=== PATIENT | female | born 1965 | race Caucasian/White ===

== ENCOUNTER 2017-02-07 10:02 | Emergency (ER) | payer OTHER ==
[2017-02-07] MEDS ORDERED: TORAdol 30 mg Injection IV ONE (10:21)
[2017-02-07] MEDS ORDERED: Sodium Chloride 0.9% 1000 ML 1,000 ML IV STA (10:21)
[2017-02-07] MEDS ORDERED: Zofran 4 MG/2 ML VIAL IV ONE (10:21)
[2017-02-07] MEDS ORDERED: Zofran 4 MG/2 ML VIAL ONE (10:25)
[2017-02-07] MEDS ORDERED: TORAdol 30 mg Injection ONE (10:25)
[2017-02-07] MEDS ORDERED: Sodium Chloride 0.9% 1000 ML 1,000 ML ONE (10:25)
--- NOTE | 2017-02-07 10:25 | ERPHSYRPT ---
- History of Present Illness Time Seen by Provider: 02/07/17 10:23 Historian: patient Exam Limitations: no limitations Patient Subjective Stated Complaint: pain to left lower abd and nausea Triage Nursing Assessment: to er c/o left lower quad pain, gradual onset of nausea, diaphoresis and weakness pt denies any vomitting BS + X4 a @ox 3. last bm today Physician History: mild to mod sudden LLQ ache pain today, nonrad, no injury, no fever, + diaphoresis, hx renal stones, +N, no emesis Hx Influenza Vaccination/Date Given: Yes - Review of Systems Constitutional: No Fever Eyes: No Symptoms Ears, Nose, & Throat: No Symptoms Respiratory: No Symptoms Cardiac: No Symptoms Abdominal/Gastrointestinal: Abdominal Pain, Nausea Musculoskeletal: No Back Pain Skin: No Symptoms Neurological: No Symptoms Psychological: No Symptoms - Past Medical History Endocrine Medical History: Hypothyroidism Other Medical History: hx kidney stone - Past Surgical History Past Surgical History: Yes Other Surgical History: thyriodectomy - Social History Smoking Status: Never smoker Drug Use: none - Female History Hx Last Menstrual Period: 2014 - Nursing Vital Signs Nursing Vital Signs: Initial Vital Signs Temperature 96.6 F 02/07/17 10:10 Pulse Rate 70 02/07/17 10:10 Respiratory Rate 16 02/07/17 10:10 Blood Pressure 165/94 02/07/17 10:10 Pain Scale Pain Intensity 3 - Physical Exam General Appearance: no apparent distress Eye Exam: eyes nml inspection Ears, Nose, Throat Exam: moist mucous membranes Neck Exam: normal inspection Respiratory Exam: normal breath sounds Cardiovascular Exam: regular rate/rhythm Gastrointestinal/Abdomen Exam: tenderness, No distention, No rebound Extremity Exam: normal inspection Neurologic Exam: alert, oriented x 3, cooperative Skin Exam: normal color, warm, dry Oxygen Delivery: Room Air - Course Nursing assessment & vital signs reviewed: Yes - CT Exams Abdomen/Pelvis CT Interpretation: Discussed w/radiologist, Other (left renal stone and partial obstruction) Ordered Tests: Active Orders 24 hr Category Date Time Status IV Insertion STAT Care 02/07/17 10:21 Active cath [Cath for Specimen-Straight] STAT Care 02/07/17 10:33 Active ABDOMEN AND PELVIS W/0 CONTRAS [CT] Stat Exams 02/07/17 12:38 Completed CBC W DIFF Stat Lab 02/07/17 10:36 Completed CMP Stat Lab 02/07/17 10:36 Completed CULTURE,URINE Stat Lab 02/07/17 10:36 Received HCG QUALITATIVE,SERUM Stat Lab 02/07/17 10:36 Completed LIPASE Stat Lab 02/07/17 10:36 Completed UA W/ MICROSCOPIC Stat Lab 02/07/17 10:36 Completed Medication Summary Discontinued Medications Generic Name Dose Route Start Last Admin Trade Name Nicola PRN Reason Stop Dose Admin Hydromorphone HCl 1 mg 02/07/17 10:39 02/07/17 10:43 Hydromorphone 1 Mg/Ml Ampule IV 02/07/17 10:40 1 mg STAT ONE Administration Hydromorphone HCl Confirm 02/07/17 10:42 Hydromorphone 1 Mg/Ml Ampule Administered 02/07/17 10:43 Dose 1 mg .ROUTE .STK-MED ONE Hydromorphone HCl 1 mg 02/07/17 11:31 02/07/17 11:53 Hydromorphone 1 Mg/Ml Ampule IV 02/07/17 11:32 1 mg STAT ONE Administration Hydromorphone HCl Confirm 02/07/17 11:53 Hydromorphone 1 Mg/Ml Ampule Administered 02/07/17 11:54 Dose 1 mg .ROUTE .STK-MED ONE Sodium Chloride 1,000 mls @ 999 mls/hr 02/07/17 10:21 02/07/17 10:26 Sodium Chloride 0.9% 1000 Ml IV 02/07/17 11:21 999 mls/hr .Q1H1M STA Administration Sodium Chloride Confirm 02/07/17 10:25 Sodium Chloride 0.9% 1000 Ml Administered 02/07/17 10:26 Dose 1,000 mls @ ud .ROUTE .STK-MED ONE Ketorolac Tromethamine 30 mg 02/07/17 10:21 02/07/17 10:30 Toradol 30 Mg Injection IV 02/07/17 10:22 30 mg STAT ONE Administration Ketorolac Tromethamine Confirm 02/07/17 10:25 Toradol 30 Mg Injection Administered 02/07/17 10:26 Dose 30 mg .ROUTE .STK-MED ONE Ondansetron HCl 4 mg 02/07/17 10:21 02/07/17 10:28 Zofran 4 Mg/2 Ml Vial IV 02/07/17 10:22 4 mg STAT ONE Administration Ondansetron HCl Confirm 02/07/17 10:25 Zofran 4 Mg/2 Ml Vial Administered 02/07/17 10:26 Dose 4 mg .ROUTE .STK-MED ONE Potassium Bicarbonate 25 meq 02/07/17 11:51 02/07/17 11:54 K-Lyte 25 Meq PO 02/07/17 11:52 25 meq STAT ONE Administration Potassium Bicarbonate Confirm 02/07/17 11:52 K-Lyte 25 Meq Administered 02/07/17 11:53 Dose 25 meq .ROUTE .STK-MED ONE Potassium Chloride 40 meq 02/08/17 11:18 Potassium Chl 40 Meq/30 Ml Oral Solution PO 02/08/17 11:19 DAILY ONE Lab/Rad Data: Laboratory Result Diagrams 02/07/17 10:36 02/07/17 10:36 Laboratory Results 02/07/17 02/07/17 02/07/17 Range/Units 10:36 10:36 10:36 WBC (4.0-10.5) K/mm3 RBC (4.1-5.4) M/mm3 Hgb (12.0-16.0) gm/dl Hct (35-47) % MCV (78-100) fl MCH (26-32) pg MCHC (32-36) g/dl RDW (11.5-14.0) % Plt Count (150-450) K/mm3 MPV (6-9.5) fl Gran % (36.0-66.0) % Lymphocytes % (24.0-44.0) % Monocytes % (0.0-12.0) % Eosinophils % (0.00-5.0) % Basophils % (0.0-0.4) % Basophils # (0-0.4) Sodium 142 (136-145) mEq/L Potassium 2.8 L* (3.5-5.1) mEq/L Chloride 104 (98-107) mEq/L Carbon Dioxide 20.4 L (21-32) mEq/L Anion Gap 20.0 H (5-15) MEQ/L BUN 17 (9-20) mg/dL Creatinine 1.31 H (0.55-1.30) mg/dl Estimated GFR 45 ML/MIN Glucose 136 H (70-110) MG/DL Calcium 9.6 (8.5-10.1) mg/dL Total Bilirubin 0.30 (0.2-1.0) mg/dL AST 16 (15-37) U/L ALT 25 (12-78) U/L Alkaline Phosphatase 84 (46-116) U/L Serum Total Protein 8.0 (6.4-8.2) gm/dL Albumin 4.0 (3.4-5.0) g/dL Lipase 138 (73-393) U/L Serum , Qual NEGATIVE (Negative) Ur Collection Type CATH Urine Color YELLOW (YELLOW) Urine Appearance CLEAR (CLEAR) Urine pH 7.0 (5-6) Ur Specific [place] 1.010 (1.005-1.025) Urine Protein TRACE (Negative) Urine Ketones NEGATIVE (NEGATIVE) Urine Blood 250 (0-5) Stevie/ul Urine Nitrite NEGATIVE (NEGATIVE) Urine Bilirubin NEGATIVE (NEGATIVE) Urine Urobilinogen NORMAL (0-1) mg/dL Ur Leukocyte Esterase TRACE (NEGATIVE) Urine Microscopic RBC 25-50 (0-2) /HPF Urine Microscopic WBC 2-5 (0-5) /HPF Ur Epithelial Cells FEW (FEW) /HPF Urine Bacteria FEW (NEGATIVE) /HPF Urine Culture Reflexed YES (NO) Urine Glucose NEGATIVE (NEGATIVE) mg/dL Specimen Received 02/07 1045 02/07/17 Range/Units 10:36 WBC 4.5 (4.0-10.5) K/mm3 RBC 4.77 (4.1-5.4) M/mm3 Hgb 13.2 (12.0-16.0) gm/dl Hct 40.7 (35-47) % MCV 85.3 (78-100) fl MCH 27.7 (26-32) pg MCHC 32.4 (32-36) g/dl RDW 14.0 (11.5-14.0) % Plt Count 211 (150-450) K/mm3 MPV 10.8 H (6-9.5) fl Gran % 47.5 (36.0-66.0) % Lymphocytes % 44.0 (24.0-44.0) % Monocytes % 6.3 (0.0-12.0) % Eosinophils % 2.0 (0.00-5.0) % Basophils % 0.2 (0.0-0.4) % Basophils # 0.01 (0-0.4) Sodium (136-145) mEq/L Potassium (3.5-5.1) mEq/L Chloride (98-107) mEq/L Carbon Dioxide (21-32) mEq/L Anion Gap (5-15) MEQ/L BUN (9-20) mg/dL Creatinine (0.55-1.30) mg/dl Estimated GFR ML/MIN Glucose (70-110) MG/DL Calcium (8.5-10.1) mg/dL Total Bilirubin (0.2-1.0) mg/dL AST (15-37) U/L ALT (12-78) U/L Alkaline Phosphatase (46-116) U/L Serum Total Protein (6.4-8.2) gm/dL Albumin (3.4-5.0) g/dL Lipase (73-393) U/L Serum , Qual (Negative) Ur Collection Type Urine Color (YELLOW) Urine Appearance (CLEAR) Urine pH (5-6) Ur Specific [place] (1.005-1.025) Urine Protein (Negative) Urine Ketones (NEGATIVE) Urine Blood (0-5) Stevie/ul Urine Nitrite (NEGATIVE) Urine Bilirubin (NEGATIVE) Urine Urobilinogen (0-1) mg/dL Ur Leukocyte Esterase (NEGATIVE) Urine Microscopic RBC (0-2) /HPF Urine Microscopic WBC (0-5) /HPF Ur Epithelial Cells (FEW) /HPF Urine Bacteria (NEGATIVE) /HPF Urine Culture Reflexed (NO) Urine Glucose (NEGATIVE) mg/dL Specimen Received - Progress Progress: improved Progress Note: 02/07/17 13:34 pt improved dilaudid and norco warnings given Discussed with : Other (Dr Melara) Will see patient in: office Counseled pt/family regarding: lab results, diagnosis, need for follow-up, rad results - Departure Time of Disposition: 13:42 Departure Disposition: Home Clinical Impression: Renal colic on left side, Hypokalemia Condition: Stable Critical Care Time: No Referrals: CESAR CHIRINOS, [employer] [Primary Care Provider] - Instructions: Vomiting -- Adult Additional Instructions: see Dr Melara [phone] return if worse dilaudid and norco warnings given flomax cipro zofran odt kdur
[2017-02-07] MEDS ORDERED: Hydromorphone 1 mg/ml Ampule IV ONE ×2 (10:39→11:31)
[2017-02-07] MEDS ORDERED: Hydromorphone 1 mg/ml Ampule ONE ×2 (10:42→11:53)
[2017-02-07 10:49] LABS: BASOPHIL % 0.2 % (0.0-0.4); Granulocytes % 47.5 % (36.0-66.0); Mean Cell Volume 85.3 fl (78-100); Mean Corpuscular Hemoglobin 27.7 pg (26-32); Mean Platelet Volume 10.8 fl (6-9.5); Monocytes % 6.3 % (0.0-12.0); Platelet Count 211 K/mm3 (150-450); Red Blood Count 4.77 M/mm3 (4.1-5.4); White Blood Count 4.5 K/mm3 (4.0-10.5)
[2017-02-07 11:00] LABS: BILIRUBIN,TOTAL 0.3 mg/dL (0.2-1.0); Carbon Dioxide 20.4 mEq/L (21-32)
[2017-02-07 11:05] LABS: Potassium 2.8 mEq/L (3.5-5.1)
[2017-02-07 11:29] LABS: Bilirubin NEGATIVE (NEGATIVE); Blood 250 Ery/ul (0-5); COMPLETE URINE MICROSCOPIC? YES; Collection Type CATH; Glucose NEGATIVE (NEGATIVE); Leukocyte Esterase TRACE (NEGATIVE)
[2017-02-07 11:30] LABS: ADD URINE CULTURE? YES (NO); Bacteria FEW /HPF (NEGATIVE); Epithelial Cells FEW /HPF (FEW)
[2017-02-07] MEDS ORDERED: K-LYTE 25 MEQ PO ONE (11:51)
[2017-02-07] MEDS ORDERED: K-LYTE 25 MEQ ONE (11:52)
--- NOTE | 2017-02-07 13:20 | XRAY ---
Indication: Left anterior/posterior pain. History of stones. Multiple contiguous axial images obtained through the abdomen and pelvis without contrast using renal stone protocol. Comparison: February 28, 2016. Lung bases demonstrates mild bilateral dependent atelectasis. Heart is not enlarged. New 5 mm left proximal ureteral calculus, approximately L3-L4 interspace level. Proximal left ureter is prominent and there is mild hydronephrosis with minimal perinephric stranding consistent with obstructive uropathy. Additional 6 mm/1 mm left mid renal and 2 mm right mid renal calculi. Stable hepatic cysts and calcified splenic granuloma. Remaining liver, gallbladder, pancreas, spleen, adrenal glands, kidneys, ureters, bladder, uterus, and aorta appear unremarkable for noncontrast exam. Noncontrasted stomach and bowel loops appear nonobstructed. Normal appendix. Again descending/sigmoid diverticulosis without diverticulitis. Osseous structures intact. Impression: 1. New 5 mm proximal left ureteral calculus producing partial obstruction as detailed. Additional bilateral renal micro-calculi. 2. Stable hepatic cysts and colonic diverticulosis. CT DI 22.41
[2017-02-07 13:51] VITALS: BP 149/105; PULSE 71; O2SAT 94
[2017-02-08] MEDS ORDERED: POTASSIUM CHL 40 MEQ/30 ML ORAL SOLUTION PO ONE (11:18)
== END 2017-02-07 14:10 | disposition home or self-care (01) ==
LOC: ED 10:02
DX: N23 Unspecified renal colic (principal); E87.6 Hypokalemia; R10.32 Left lower quadrant pain; R11.0 Nausea
CPT/HCPCS: 36000; 36415; 74176; 80053; 81000; 83690; 84703; 85025; 87086; 96360; 96374; 96375; 96376; 99284; J1170; J1885; J2405; P9612; A9270-GY